=== PATIENT | female | born 1945 | race Two or more races ===

== ENCOUNTER 2025-01-22 10:44 | Emergency (ER) | payer OTHER ==
[~2025-01-22] VITALS: Ht 170.2 cm; Wt 59.9 kg
[~2025-01-22 10:44] MED LIST: CLONAZEPAM0.125 MG; DIOVAN40 MG; INTESTINEX680 M1
[2025-01-22] MEDS ORDERED: HYOSCYAMINE SULFATE 0.125 MG TAB.SUBL SL STA (11:36)
[2025-01-22] MEDS ORDERED: KETOROLAC TROMETHAMINE 30 MG VIAL IV STA (11:37)
[2025-01-22 12:11] LABS: HEMATOCRIT 42.9 % (36.0-45.00); HEMOGLOBIN 14.8 g/dL (12.0-15.00); MEAN CELL VOLUME 91.6 fL (80.00-100.00); MEAN CORPUSCULAR HEMOGLOBIN 31.7 pg (27.00-32.0); MEAN CORPUSCULAR HGB CONC 34.6 g/dl (32.0-36.0); PLATELET COUNT 168 K/uL (150-450); RED BLOOD COUNT 4.68 M/uL (4.00-6.00); RED CELL DISTRIBUTION WIDTH 13.9 % (11.5-14.5)
[2025-01-22 12:20] LABS: PH,URINE 5.5 (5.0-8.0); URINE APPEARANCE Clear; URINE BILIRRUBIN Negative (NEGATIVE); URINE BLOOD Negative; URINE COLOR Yellow; URINE GLUCOSE Negative (NEGATIVE); URINE KETONE Negative (NEGATIVE); URINE LEUKOCYTE Negative; URINE NITRATE Negative; URINE PROTEIN Negative (NEGATIVE); URINE UROBILINOGEN 0.2 E.U./dl
[2025-01-22 12:21] LABS: URINE BACTERIA 992.6 uL (0.0-1933); URINE EPITHELIAL CELLS 4.7 uL (0.0-38.8); URINE RBC 2.2 uL (0.0-20.8); URINE WBC 4.4 uL (0.0-23.2)
[2025-01-22 12:25] LABS: URINE CAST 0.14 uL (0.0-1.40)
[2025-01-22 12:28] LABS: INR 1.01; PARTIAL THROMBOPLASTIN TIME 28.5 SECONDS (22.0-34.0)
[2025-01-22 12:36] LABS: CREATININE SERUM 0.67 mg/dL (0.55-1.02); GFR 85.35; POTASSIUM 3.11 mEq/L (3.5-5.1)
== END 2025-01-22 14:14 | disposition home or self-care (01) ==
LOC: ER 10:45
DX: R10.32 Left lower quadrant pain (principal); K59.09 Other constipation

== ENCOUNTER 2025-01-29 07:17 | Emergency (ER) | payer OTHER ==
[~2025-01-29] VITALS: Ht 165.1 cm; Wt 59.9 kg
[2025-01-29] MEDS ORDERED: VALSARTAN-HCTZ1 EAC4 PO (07:25)
[2025-01-29] MEDS ORDERED: NORVASC2.5 MG PO (07:26)
[2025-01-29] MEDS ORDERED: 0.9 % SODIUM CHLORIDE 1,000 ML IV ONE (08:45)
[2025-01-29] MEDS ORDERED: KETOROLAC TROMETHAMINE 30 MG VIAL IV ONE (08:45)
[2025-01-29] MEDS ORDERED: FAMOtidine 10 MG/ML (4ML VIAL) IV ONE (08:45)
[2025-01-29] MEDS ORDERED: METRONIDAZOLE/SODIUM CHLORIDE 500 MG/100 ML PIGGYBACK IV ONE ×2 (09:30→09:52)
[2025-01-29] MEDS ORDERED: CIPROFLOXACIN IN 5 % DEXTROSE 400 MG/200 ML PIGGYBAG IV ONE ×2 (09:30→09:52)
[2025-01-29] MEDS ORDERED: KETOROLAC TROMETHAMINE 30 MG VIAL ONE (09:52)
[2025-01-29] MEDS ORDERED: FAMOTIDINE/PF 20 MG/2 ML VIAL ONE (09:53)
[2025-01-29 10:25] LABS: INR 1.05; PARTIAL THROMBOPLASTIN TIME 28.1 SECONDS (22.0-34.0); PROTHROMBIN TIME 11.4 SECONDS (9.0-11.5)
[2025-01-29 10:26] LABS: HEMATOCRIT 42.7 % (36.0-45.00); HEMOGLOBIN 14.8 g/dL (12.0-15.00); MEAN CELL VOLUME 92.5 fL (80.00-100.00); MEAN CORPUSCULAR HGB CONC 34.6 g/dl (32.0-36.0); PLATELET COUNT 183 K/uL (150-450); RED BLOOD COUNT 4.62 M/uL (4.00-6.00); RED CELL DISTRIBUTION WIDTH 13.8 % (11.5-14.5)
[2025-01-29 10:29] LABS: ALBUMIN 4.2 gm/dL (3.4-5.0); BILIRUBIN TOTAL 0.47 mg/dL (0.3-1.2); CALCIUM 9.8 mg/dL (8.5-10.1); CREATININE SERUM 0.71 mg/dL (0.55-1.02); GFR 79.82; POTASSIUM 3.48 mEq/L (3.5-5.1); TOTAL PROTEIN 8.2 gm/dL (6.4-8.2)
[2025-01-29 10:53] LABS: PH,URINE 5.5 (5.0-8.0); URINE APPEARANCE Clear; URINE BILIRRUBIN Negative (NEGATIVE); URINE BLOOD Negative; URINE COLOR Yellow; URINE GLUCOSE Negative (NEGATIVE); URINE KETONE Negative (NEGATIVE); URINE LEUKOCYTE Trace; URINE NITRATE Negative; URINE PROTEIN Trace (NEGATIVE); URINE UROBILINOGEN 0.2 E.U./dl
[2025-01-29 10:57] LABS: URINE BACTERIA 13.4 uL (0.0-1933); URINE EPITHELIAL CELLS 6.4 uL (0.0-38.8); URINE RBC 5.5 uL (0.0-20.8); URINE WBC 12.3 uL (0.0-23.2)
[2025-01-29] MEDS ORDERED: PEPCID AC20 MG PO (14:14)
[2025-01-29] MEDS ORDERED: METRONIDAZOLE500 MG PO (14:14)
[2025-01-29] MEDS ORDERED: DICY20TA PO (14:14)
[2025-01-29] MEDS ORDERED: CIPRO500 MG PO (14:14)
== END 2025-01-29 14:27 | disposition home or self-care (01) ==
LOC: ER 07:18
PROVIDERS: General Practice
DX: R10.32 Left lower quadrant pain (principal); R19.7 Diarrhea, unspecified; K57.92 Diverticulitis of intestine, part unspecified, without perforation or abscess without bleeding; R10.9 Unspecified abdominal pain; I10 Essential (primary) hypertension; Z88.8 Allergy status to other drugs, medicaments and biological substances
CPT/HCPCS: 36415; 74177; Q9965

== ENCOUNTER 2025-02-05 05:34 | Emergency (ER) | payer OTHER ==
[~2025-02-05] VITALS: Ht 165.1 cm; Wt 59.9 kg
[~2025-02-05 05:34] MED LIST changes: +CIPRO500 MG PO; +DICY20TA PO; +METRONIDAZOLE500 MG PO; +NORVASC2.5 MG PO; +PEPCID AC20 MG PO; +VALSARTAN-HCTZ1 EAC4 PO
[2025-02-05 06:00] VITALS: BP 132/76; O2SAT 99
[2025-02-05] MEDS ORDERED: FAMOTIDINE/PF 20 MG in 0.9 % SODIUM CHLORIDE 8 ML IV PUSH STA (06:33)
[2025-02-05] MEDS ORDERED: DIATRIZOATE MEGLUMINE, SODIUM 30 ML BOTTLE ONE (06:41)
[2025-02-05] MEDS ORDERED: HYOSCYAMINE SULFATE 0.125 MG TAB.SUBL ONE (06:41)
[2025-02-05] MEDS ORDERED: ONDANSETRON HCL 2 MG/ML VIAL ONE (06:41)
[2025-02-05] MEDS ORDERED: PIPERACILLIN/TAZOBACTAM SODIUM 3.375 GM VIAL IV ONE ×2 (06:41→06:45)
[2025-02-05] MEDS ORDERED: FAMOTIDINE/PF 20 MG/2 ML VIAL ONE (06:42)
[2025-02-05] MEDS ORDERED: DIATRIZOATE MEGLUMINE, SODIUM 30 ML BOTTLE PO ONE (06:45)
[2025-02-05] MEDS ORDERED: HYOSCYAMINE SULFATE 0.125 MG TAB.SUBL SL ONE (06:45)
[2025-02-05] MEDS ORDERED: 0.9 % SODIUM CHLORIDE 1,000 ML IV SCH (06:45)
[2025-02-05] MEDS ORDERED: ONDANSETRON HCL 2 MG/ML VIAL IV ONE (06:45)
[2025-02-05 07:49] LABS: HEMATOCRIT 43.6 % (36.0-45.00); HEMOGLOBIN 14.8 g/dL (12.0-15.00); MEAN CELL VOLUME 92.9 fL (80.00-100.00); MEAN CORPUSCULAR HEMOGLOBIN 31.5 pg (27.00-32.0); MEAN CORPUSCULAR HGB CONC 33.9 g/dl (32.0-36.0); PLATELET COUNT 202 K/uL (150-450); RED BLOOD COUNT 4.69 M/uL (4.00-6.00); RED CELL DISTRIBUTION WIDTH 14.1 % (11.5-14.5)
[2025-02-05 08:27] LABS: ALBUMIN 4.2 gm/dL (3.4-5.0); BILIRUBIN TOTAL 0.72 mg/dL (0.3-1.2); CALCIUM 9.8 mg/dL (8.5-10.1); CREATININE SERUM 0.78 mg/dL (0.55-1.02); GFR 71.61; GLOBULINA 3.6 G/DL (2.4-3.5); POTASSIUM 3.92 mEq/L (3.5-5.1); TOTAL PROTEIN 7.8 gm/dL (6.4-8.2)
== END 2025-02-05 13:01 | disposition home or self-care (01) ==
LOC: ER 05:36
PROVIDERS: General Practice
DX: R10.32 Left lower quadrant pain (principal); K57.32 Diverticulitis of large intestine without perforation or abscess without bleeding; I10 Essential (primary) hypertension; Z88.8 Allergy status to other drugs, medicaments and biological substances
CPT/HCPCS: 36415; 96365; 96366; 99282; J2405; J2543; J3490; J7030